=== PATIENT | male | born 1980 | race Hispanic/Latino ===

== ENCOUNTER 2017-09-02 19:38 | Inpatient (IN) | payer BC ==
[~2017-09-02] VITALS: Ht 175.3 cm; Wt 104.7 kg
[2017-09-02 20:04] LABS: APPEARANCE,URINE Clear (CLEAR); BILIRUBIN,URINE Negative (NEGATIVE); COLOR,URINE Dark Yellow (YELLOW); GLUCOSE, URINE (UA) Negative (NEGATIVE); KETONES,URINE 40 mg/dL (NEGATIVE); LEUKOCYTE ESTERASE ,URINE Negative (NEGATIVE); NITRATE,URINE Negative (NEGATIVE); OCCULT BLOOD,URINE Moderate (NEGATIVE); PH,URINE 5.5 (5.0-8.0); PROTEIN,URINE POS 2+ (NEGATIVE)
[2017-09-02 20:09] LABS: BASOPHILS % (AUTO) 1.8 % (0.0-5.0); EOSINOPHILS % (AUTO) 0.2 % (0.0-8.0); HEMATOCRIT 43.7 % (42-54); LYMPHOCYTES % (AUTO) 11.9 % (21.0-51.0); MEAN CORPUSCULAR HEMOGLOBIN 31.5 pg (27.0-33.0); MEAN CORPUSCULAR HGB CONC 34.6 g/dL (32.0-36.0); MEAN CORPUSCULAR VOLUME 90.9 fL (79-99); MONOCYTES % (AUTO) 7.6 % (3.0-13.0); NEUTROPHILS % (AUTO) 78.5 % (40.0-77.0); PLATELET COUNT (AUTO) 164 K/uL (130-400); RED BLOOD CELL COUNT(AUTO) 4.81 MIL/uL (4.50-6.20); RED CELL DISTRIBUTION WIDTH 12.8 % (11.0-15.5); WHITE BLOOD COUNT (AUTO) 10.6 K/uL (4.8-10.8)
[2017-09-02 20:20] LABS: BACTERIA,URINE Rare /HPF (None Seen); WBC,URINE 0-1 /HPF (0-1)
[2017-09-02 20:22] LABS: CARBON DIOXIDE 25 mmol/L (21-32); CHLORIDE 100 mmol/L (101-111); CREATININE 1.1 mg/dL (0.5-1.5); GLOMERULAR FILTR. RATE CALC 79 mL/min (>60); GLUCOSE,RANDOM 109 mg/dL (70-105); POTASSIUM 3.8 mmol/L (3.5-5.1); SODIUM SERUM 137 mmol/L (136-145); UREA NITROGEN, BLOOD 12 mg/dL (7-18)
[2017-09-02 20:23] LABS: INR 0.95 (0.85-1.15); PARTIAL THROMBOPLASTIN TIME 32.2 SEC (26.3-35.5)
[2017-09-02] MEDS ORDERED: IBUPROFEN 600 MG TABLET ONE (20:28)
[2017-09-02 20:37] LABS: ALANINE AMINOTRANSFERASE 67 U/L (12-78); ALBUMIN 3.2 g/dL (3.5-5.0); ASPARTATE AMINOTRANSFERASE 37 U/L (10-37); BILIRUBIN,TOTAL 0.8 mg/dL (0.2-1.0); CREATINE KINASE MB < 0.5 ng/mL (0.5-3.6); CREATINE KINASE, TOTAL 64 U/L (21-232); MYOGLOBIN 27 ng/mL (10-92); TOTAL PROTEIN, SERUM 7.6 g/dL (6.0-8.3); TROPONIN I < 0.04 ng/mL (0.00-0.06)
[2017-09-02] MEDS ORDERED: IOPAMIDOL-370 75 ML VIAL IV ONE (20:37)
[2017-09-02] MEDS ORDERED: ISOVUE-370 50ML VIAL IV ONE (21:07)
[2017-09-02] MEDS ORDERED: METRONIDAZOLE 500MG/100ML BAG 100 ML ONE (22:46)
[2017-09-02] MEDS ORDERED: LACTATED RINGERS 1000ML 1,000 ML IV ONE (23:06)
[2017-09-02] MEDS ORDERED: ONDANSETRON HCL 4 MG/2 ML VIAL IVP PRN (23:15)
[2017-09-02] MEDS ORDERED: CEFTAZIDIME PENTAHYDRATE 1 GM/VIAL ONE (23:25)
[2017-09-02] MEDS ORDERED: ONDANSETRON HCL 4 MG/2 ML VIAL ONE (23:40)
[2017-09-02] MEDS ORDERED: MEPERIDINE-PF 25 MG/ML SYG ONE (23:40)
[2017-09-03] MEDS ORDERED: CEFTAZIDIME 1GM+NS 50ML 50 ML IV SCH
[2017-09-03] MEDS: METRONIDAZOLE 500MG/100ML BAG 100 ML IVPB SCH ×4 (04:00→20:39)
[2017-09-03] MEDS ORDERED: METRONIDAZOLE 500MG/100ML BAG 100 ML ONE ×2 (07:03→13:30)
[2017-09-03] MEDS: LACTATED RINGERS 1000ML 1,000 ML IV SCH ×3 (07:15→20:39)
[2017-09-03] MEDS ORDERED: MEPERIDINE-PF 25 MG/ML SYG ONE ×3 (07:15→15:08)
[2017-09-03] MEDS ORDERED: ONDANSETRON HCL 4 MG/2 ML VIAL ONE (07:15)
[2017-09-03] MEDS: CEFTAZIDIME PENTAHYDRATE 1 GM/VIAL IVP SCH ×2 (14:00→22:31)
[2017-09-03 17:25] VITALS: BP 145/89
[2017-09-03] MEDS ORDERED: AMOX-429 PO (17:45)
[2017-09-03 19:54] VITALS: BP 146/99
[2017-09-03] MEDS ORDERED: MEPERIDINE HCL/PF 25 MG/0.5 ML AMPUL ONE (20:37)
[2017-09-03 23:42] VITALS: BP 129/77
[2017-09-04] MEDS: LACTATED RINGERS 1000ML 1,000 ML IV SCH ×4 (02:14→22:04)
[2017-09-04] MEDS: METRONIDAZOLE 500MG/100ML BAG 100 ML IVPB SCH ×4 (04:09→22:03)
[2017-09-04 05:07] VITALS: BP 121/81
[2017-09-04] MEDS: CEFTAZIDIME PENTAHYDRATE 1 GM/VIAL IVP SCH ×3 (06:39→22:04)
[2017-09-04 07:55] VITALS: BP 144/101
[2017-09-04 09:28] LABS: HEMATOCRIT 42.9 % (42-54); MEAN CORPUSCULAR HEMOGLOBIN 31.4 pg (27.0-33.0); MEAN CORPUSCULAR HGB CONC 34.6 g/dL (32.0-36.0); MEAN CORPUSCULAR VOLUME 90.9 fL (79-99); PLATELET COUNT (AUTO) 187 K/uL (130-400); RED BLOOD CELL COUNT(AUTO) 4.72 MIL/uL (4.50-6.20); RED CELL DISTRIBUTION WIDTH 12.8 % (11.0-15.5); WHITE BLOOD COUNT (AUTO) 6.1 K/uL (4.8-10.8)
[2017-09-04 09:39] LABS: POTASSIUM 4.2 mmol/L (3.5-5.1)
[2017-09-04] MEDS: MEPERIDINE-PF 25 MG/ML SYG IV PRN (09:44)
[2017-09-04 12:01] VITALS: BP 124/82
[2017-09-04 16:33] VITALS: BP 135/94
[2017-09-04 20:00] VITALS: BP 143/86
[2017-09-04] MEDS ORDERED: MEPERIDINE HCL/PF 25 MG/0.5 ML AMPUL ONE (22:02)
[2017-09-05] VITALS (7 sets, daily range): BP systolic 126–154; BP diastolic 74–95
[2017-09-05 05:06] LABS: MEAN CORPUSCULAR HEMOGLOBIN 31.3 pg (27.0-33.0); MEAN CORPUSCULAR VOLUME 89.3 fL (79-99); PLATELET COUNT (AUTO) 198 K/uL (130-400); RED BLOOD CELL COUNT(AUTO) 4.59 MIL/uL (4.50-6.20); RED CELL DISTRIBUTION WIDTH 12.3 % (11.0-15.5); WHITE BLOOD COUNT (AUTO) 5.3 K/uL (4.8-10.8)
[2017-09-05 05:11] LABS: POTASSIUM 3.7 mmol/L (3.5-5.1)
[2017-09-05] MEDS: METRONIDAZOLE 500MG/100ML BAG 100 ML IVPB SCH ×4 (05:11→21:45)
[2017-09-05] MEDS: CEFTAZIDIME PENTAHYDRATE 1 GM/VIAL IVP SCH ×3 (05:11→21:45)
[2017-09-05] MEDS: LACTATED RINGERS 1000ML 1,000 ML IV SCH ×3 (09:52→23:53)
[2017-09-05] MEDS ORDERED: LACTATED RINGERS 1000ML IV ONE (17:45)
[2017-09-05] MEDS: MEPERIDINE-PF 25 MG/ML SYG IV PRN (22:44)
[2017-09-06 04:10] VITALS: BP 158/84
[2017-09-06] MEDS: METRONIDAZOLE 500MG/100ML BAG 100 ML IVPB SCH ×4 (04:15→21:37)
[2017-09-06] MEDS: MEPERIDINE-PF 25 MG/ML SYG IV PRN (04:15)
[2017-09-06 04:56] LABS: HEMATOCRIT 42.4 % (42-54); MEAN CORPUSCULAR HEMOGLOBIN 31.2 pg (27.0-33.0); MEAN CORPUSCULAR HGB CONC 34.7 g/dL (32.0-36.0); NUCLEATED RED BLOOD CELLS 0.1 % (0.0-0.19); PLATELET COUNT (AUTO) 225 K/uL (130-400); RED BLOOD CELL COUNT(AUTO) 4.71 MIL/uL (4.50-6.20); RED CELL DISTRIBUTION WIDTH 12.5 % (11.0-15.5); WHITE BLOOD COUNT (AUTO) 4.8 K/uL (4.8-10.8)
[2017-09-06 05:07] LABS: POTASSIUM 3.9 mmol/L (3.5-5.1)
[2017-09-06] MEDS: CEFTAZIDIME PENTAHYDRATE 1 GM/VIAL IVP SCH ×3 (05:11→21:37)
[2017-09-06 07:00] VITALS: BP 146/85
[2017-09-06 11:57] VITALS: BP 143/91
[2017-09-06] MEDS: LACTATED RINGERS 1000ML 1,000 ML IV SCH (14:15)
[2017-09-06 16:00] VITALS: BP 135/83
[2017-09-06 19:36] VITALS: BP 145/80
[2017-09-06 23:25] VITALS: BP 128/73
[2017-09-07] MEDS: LACTATED RINGERS 1000ML 1,000 ML IV SCH (00:25)
[2017-09-07 04:47] VITALS: BP 123/74
[2017-09-07] MEDS: METRONIDAZOLE 500MG/100ML BAG 100 ML IVPB SCH (04:49)
[2017-09-07] MEDS: CEFTAZIDIME PENTAHYDRATE 1 GM/VIAL IVP SCH (05:51)
[2017-09-07 07:39] VITALS: BP 139/78
[2017-09-07 10:18] LABS: HEMATOCRIT 43.6 % (42-54); MEAN CORPUSCULAR HEMOGLOBIN 31.5 pg (27.0-33.0); MEAN CORPUSCULAR VOLUME 89.9 fL (79-99); PLATELET COUNT (AUTO) 243 K/uL (130-400); RED BLOOD CELL COUNT(AUTO) 4.85 MIL/uL (4.50-6.20); RED CELL DISTRIBUTION WIDTH 12.8 % (11.0-15.5); WHITE BLOOD COUNT (AUTO) 4.3 K/uL (4.8-10.8)
[2017-09-07 10:25] LABS: CREATININE 0.9 mg/dL (0.5-1.5); POTASSIUM 3.7 mmol/L (3.5-5.1)
[2017-09-07 11:16] VITALS: BP 149/89
== END 2017-09-07 12:10 | disposition home or self-care (01) | DRG 392 ==
LOC: EDH 19:38 → EDHIP 22:40 → 4BH 09-03 17:06
PROVIDERS: ADMIT Surgery; ATTEND Surgery
DX: K57.20 Diverticulitis of large intestine with perforation and abscess without bleeding (principal)
CPT/HCPCS: 36415; 71045; 74177; 80048; 80053; 81001; 82550; 82553; 83605; 83874; 84484; 85025; 85027; 85610; 85730; 87040; 87088; 93005; A4218; J0713; J2175; J2405; J3490; J7120; Q9967

== ENCOUNTER 2020-01-02 15:09 | Inpatient (IN) | payer BC ==
[~2020-01-02] VITALS: Ht 175.3 cm; Wt 103.5 kg
[~2020-01-02 15:09] MED LIST: AMOX-429 PO
[2020-01-02 15:27] LABS: BASOPHILS % (AUTO) 0.5 % (0.0-5.0); EOSINOPHILS % (AUTO) 1.4 % (0.0-8.0); HEMATOCRIT 46.7 % (42-54); LYMPHOCYTES % (AUTO) 38.3 % (21.0-51.0); MEAN CORPUSCULAR HEMOGLOBIN 30.4 pg (27.0-33.0); MEAN CORPUSCULAR HGB CONC 34.3 g/dL (32.0-36.0); MEAN CORPUSCULAR VOLUME 88.6 fL (79-99); MONOCYTES % (AUTO) 8.2 % (3.0-13.0); NEUTROPHILS % (AUTO) 51.3 % (40.0-77.0); PLATELET COUNT (AUTO) 176 K/uL (130-400); RED BLOOD CELL COUNT(AUTO) 5.27 MIL/uL (4.50-6.20); RED CELL DISTRIBUTION WIDTH 12.1 % (11.0-15.5); WHITE BLOOD COUNT (AUTO) 6.6 K/uL (4.8-10.8)
[2020-01-02 15:39] LABS: INR 0.91 (0.85-1.15); PARTIAL THROMBOPLASTIN TIME 24.9 SEC (26.3-35.5); PROTHROMBIN TIME 9.9 SEC (9.6-11.6)
[2020-01-02 17:11] LABS: BILIRUBIN,TOTAL 0.3 mg/dL (0.2-1.0); CREATININE 1.4 mg/dL (0.5-1.5); POTASSIUM 3.5 mmol/L (3.5-5.1); TOTAL PROTEIN, SERUM 7.2 g/dL (6.0-8.3)
[2020-01-02] MEDS ORDERED: ACETAMINOPHEN 325 MG TAB ONE (17:20)
[2020-01-02] MEDS ORDERED: ONDANSETRON HCL 4 MG/2 ML VIAL ONE (17:26)
[2020-01-02] MEDS: SODIUM CHLORIDE 0.9% 1000ML 1,000 ML IV SCH (17:57)
[2020-01-02] MEDS ORDERED: HYDRALAZINE HCL 20 MG/ML VIAL IV PRN (18:00)
[2020-01-02] MEDS ORDERED: ACETAMINOPHEN 325 MG TAB PO PRN ×2 (18:00)
[2020-01-02 18:46] LABS: APPEARANCE,URINE Clear (CLEAR); BILIRUBIN,URINE Negative (NEGATIVE); COLOR,URINE Yellow (YELLOW); GLUCOSE, URINE (UA) Negative (NEGATIVE); KETONES,URINE Negative (NEGATIVE); LEUKOCYTE ESTERASE ,URINE Negative (NEGATIVE); NITRATE,URINE Negative (NEGATIVE); OCCULT BLOOD,URINE Negative (NEGATIVE); PROTEIN,URINE Negative (NEGATIVE)
[2020-01-02 18:55] LABS: AMPHET/METH SCREEN,URINE NEGATIVE (NEGATIVE); BARBITURATE SCREEN, URINE NEGATIVE (NEGATIVE); BENZODIAZEPINES SCREEN,URINE NEGATIVE (NEGATIVE); CANNABINOID SCREEN,URINE NEGATIVE (NEGATIVE); COCAINE SCREEN,URINE NEGATIVE (NEGATIVE); OPIATE SCREEN,URINE NEGATIVE (NEGATIVE); PHENCYCLIDINE SCREEN,URINE NEGATIVE (NEGATIVE)
[2020-01-02] MEDS: LEVETIRACETAM 500 MG TABLET PO SCH (21:00)
[2020-01-02] MEDS: FAMOTIDINE/PF 20 MG/2 ML VIAL IV SCH (21:00)
[2020-01-02] MEDS ORDERED: FAMOTIDINE 20MG TAB 20 MG TAB ONE (21:04)
[2020-01-02] MEDS ORDERED: LEVETIRACETAM 500 MG TABLET PO ONE (21:05)
[2020-01-02 21:25] VITALS: BP 139/92
[2020-01-02 22:10] LABS: BASOPHILS % (AUTO) 0.3 % (0.0-5.0); EOSINOPHILS % (AUTO) 1.2 % (0.0-8.0); HEMATOCRIT 44.2 % (42-54); MEAN CORPUSCULAR HEMOGLOBIN 30.2 pg (27.0-33.0); MEAN CORPUSCULAR HGB CONC 33.9 g/dL (32.0-36.0); MEAN CORPUSCULAR VOLUME 88.9 fL (79-99); MONOCYTES % (AUTO) 6.5 % (3.0-13.0); NEUTROPHILS % (AUTO) 49.7 % (40.0-77.0); PLATELET COUNT (AUTO) 181 K/uL (130-400); RED BLOOD CELL COUNT(AUTO) 4.97 MIL/uL (4.50-6.20); RED CELL DISTRIBUTION WIDTH 12.3 % (11.0-15.5)
[2020-01-02 22:27] LABS: ALBUMIN 3.6 g/dL (3.5-5.0); BILIRUBIN,TOTAL 0.4 mg/dL (0.2-1.0); CREATININE 1.2 mg/dL (0.5-1.5); POTASSIUM 3.6 mmol/L (3.5-5.1); TOTAL PROTEIN, SERUM 6.8 g/dL (6.0-8.3)
[2020-01-03 00:24] VITALS: BP 129/85
[2020-01-03 04:24] VITALS: BP 98/60
[2020-01-03] MEDS: SODIUM CHLORIDE 0.9% 1000ML 1,000 ML IV SCH ×2 (05:37→14:00)
[2020-01-03 08:23] VITALS: BP 132/88
[2020-01-03] MEDS: FAMOTIDINE/PF 20 MG/2 ML VIAL IV SCH (08:32)
[2020-01-03] MEDS: LEVETIRACETAM 500 MG TABLET PO SCH (08:32)
--- NOTE | 2020-01-03 10:17 | NUR ---
DC PLAN VISITED WITH PATIENT. PATIENT LIVES WITH SPOUSE. INDEPENDENT ABLE TO PERFORM ADL'S. PATIENT HAS NO SERVICES OR DME'S. FEELS SAFE TO RETURN HOME. Addendum: 01/03/20 at 1018 by SHELLY PALMER RN CM Amended: Links added.
[2020-01-03] MEDS ORDERED: GADODIAMIDE 10 MMOL/20 ML VIAL IV ONE (11:01)
[2020-01-03 11:51] VITALS: BP 129/87
[2020-01-03] MEDS ORDERED: LEVE-43 PO (15:19)
== END 2020-01-03 17:45 | disposition home or self-care (01) | DRG 101 ==
LOC: EDH 15:09 → EDHIP 17:57 → 3DH 21:35
PROVIDERS: ADMIT Internal Medicine; ATTEND Internal Medicine
DX: R56.9 Unspecified convulsions (principal); N17.9 Acute kidney failure, unspecified; G93.81 Temporal sclerosis; F17.210 Nicotine dependence, cigarettes, uncomplicated; N28.9 Disorder of kidney and ureter, unspecified; Z83.3 Family history of diabetes mellitus; Z82.49 Family history of ischemic heart disease and other diseases of the circulatory system
CPT/HCPCS: 36415; 70450; 70544; 70547; 70551; 70553; 71045; 80053; 80305; 81003; 82948; 85025; 85610; 85730; 93005; 99291; A9579; G0378; J2405; J3490; J7030

== ENCOUNTER 2020-03-31 13:24 | Emergency (ER) | payer BC ==
[~2020-03-31 13:24] MED LIST changes: -AMOX-429 PO; +LEVE-43 PO
[2020-03-31 13:47] LABS: BASOPHILS % (AUTO) 0.3 % (0.0-5.0); EOSINOPHILS % (AUTO) 0.6 % (0.0-8.0); HEMATOCRIT 48.5 % (42-54); LYMPHOCYTES % (AUTO) 25.5 % (21.0-51.0); MEAN CORPUSCULAR HEMOGLOBIN 30.5 pg (27.0-33.0); MEAN CORPUSCULAR HGB CONC 34.8 g/dL (32.0-36.0); MEAN CORPUSCULAR VOLUME 87.4 fL (79-99); MONOCYTES % (AUTO) 6.7 % (3.0-13.0); NEUTROPHILS % (AUTO) 66.6 % (40.0-77.0); PLATELET COUNT (AUTO) 159 K/uL (130-400); RED BLOOD CELL COUNT(AUTO) 5.55 MIL/uL (4.50-6.20); RED CELL DISTRIBUTION WIDTH 12.2 % (11.0-15.5); WHITE BLOOD COUNT (AUTO) 6.5 K/uL (4.8-10.8)
[2020-03-31 14:00] LABS: CREATININE 1.7 mg/dL (0.5-1.5); POTASSIUM 3.6 mmol/L (3.5-5.1)
[2020-03-31 14:04] LABS: ALBUMIN 4.1 g/dL (3.5-5.0); BILIRUBIN,TOTAL 0.4 mg/dL (0.2-1.0); TOTAL PROTEIN, SERUM 7.6 g/dL (6.0-8.3)
[2020-03-31] MEDS ORDERED: METOCLOPRAMIDE 10 MG/2 ML VIAL ONE (14:04)
[2020-03-31] MEDS ORDERED: DiphenhydrAMINE HCL 50 MG/ML VIAL ONE (14:05)
[2020-03-31] MEDS ORDERED: SODIUM CHLORIDE 0.9% 1000ML 1,000 ML IV ONE (14:05)
[2020-03-31] MEDS ORDERED: LEVETIRACETAM 500 MG/5 ML SD VIAL IV ONE (14:05)
[2020-03-31 14:06] LABS: INR 0.91 (0.85-1.15); PARTIAL THROMBOPLASTIN TIME 22.4 SEC (26.3-35.5); PROTHROMBIN TIME 9.9 SEC (9.6-11.6)
[2020-03-31] MEDS ORDERED: SODIUM CHLORIDE 0.9% 100 ML IV ONE (14:06)
[2020-03-31] MEDS ORDERED: IOHEXOL 350 MG/ML 100ML INFUS..BTL IV ONE (14:18)
[2020-03-31 14:24] LABS: APPEARANCE,URINE Clear (CLEAR); BILIRUBIN,URINE Negative (NEGATIVE); COLOR,URINE Yellow (YELLOW); GLUCOSE, URINE (UA) Negative (NEGATIVE); KETONES,URINE Negative (NEGATIVE); LEUKOCYTE ESTERASE ,URINE Negative (NEGATIVE); NITRATE,URINE Negative (NEGATIVE); OCCULT BLOOD,URINE Negative (NEGATIVE); PH,URINE 5.5 (5.0-8.0); PROTEIN,URINE POS 1+ mg/dL (NEGATIVE); UROBILINOGEN,URINE 0.2 mg/dL (0.2-1.0)
[2020-03-31 14:30] LABS: BACTERIA,URINE Rare /HPF (None Seen); MUCUS,URINE Rare LPF (None Seen); RBC,URINE 0-1 /HPF (0-1); SQUAMOUS EPITHELIAL CELL,UR Rare /HPF (0-2); WBC,URINE 0-1 /HPF (0-1)
[2020-03-31 14:33] LABS: AMPHET/METH SCREEN,URINE NEGATIVE (NEGATIVE); BARBITURATE SCREEN, URINE NEGATIVE (NEGATIVE); BENZODIAZEPINES SCREEN,URINE NEGATIVE (NEGATIVE); CANNABINOID SCREEN,URINE NEGATIVE (NEGATIVE); COCAINE SCREEN,URINE NEGATIVE (NEGATIVE); OPIATE SCREEN,URINE NEGATIVE (NEGATIVE); PHENCYCLIDINE SCREEN,URINE NEGATIVE (NEGATIVE)
[2020-03-31] MEDS ORDERED: ACETAMINOPHEN EXTRA STRENGTH 500 MG TABLET ONE (15:35)
== END 2020-03-31 16:19 | disposition home or self-care (01) ==
LOC: EDH 13:24
DX: G40.89 Other seizures (principal); N28.9 Disorder of kidney and ureter, unspecified; R03.0 Elevated blood-pressure reading, without diagnosis of hypertension; Z72.0 Tobacco use
CPT/HCPCS: 36415; 70450; 71045; 80053; 80177; 80305; 81001; 82550; 82948; 83721; 84484; 85025; 85610; 85730; 93005; 96365; 96366; 96375; 99291; J1200; J1953; J2765; J7030; Q9967

== ENCOUNTER 2021-02-03 18:08 | Emergency (ER) | payer BC ==
[~2021-02-03] VITALS: Ht 177.8 cm; Wt 99.8 kg
[2021-02-03 18:15] VITALS: BP 145/95
[2021-02-03 18:51] LABS: BASOPHILS % (AUTO) 0.3 % (0.0-5.0); EOSINOPHILS % (AUTO) 0.4 % (0.0-8.0); HEMATOCRIT 43.3 % (42-54); LYMPHOCYTES % (AUTO) 22.1 % (21.0-51.0); MEAN CORPUSCULAR HEMOGLOBIN 30.4 pg (27.0-33.0); MEAN CORPUSCULAR HGB CONC 34.4 g/dL (32.0-36.0); MEAN CORPUSCULAR VOLUME 88.4 fL (79-99); MONOCYTES % (AUTO) 6.8 % (3.0-13.0); NEUTROPHILS % (AUTO) 70.1 % (40.0-77.0); PLATELET COUNT (AUTO) 176 K/uL (130-400); WHITE BLOOD COUNT (AUTO) 7.5 K/uL (4.8-10.8)
[2021-02-03] MEDS ORDERED: 0.9%NACL 100ML 100 ML ONE (18:55)
[2021-02-03] MEDS ORDERED: LEVETIRACETAM 500 MG/5 ML SD VIAL IV ONE (18:55)
[2021-02-03] MEDS: LEVETIRACETAM 500 MG in 0.9%NACL 100ML 100 ML IV SCH ×2 (19:00→19:08)
[2021-02-03 19:20] LABS: CREATININE 1.1 mg/dL (0.5-1.5); POTASSIUM 3.6 mmol/L (3.5-5.1)
[2021-02-03 19:25] LABS: ALBUMIN 3.8 g/dL (3.5-5.0); BILIRUBIN,TOTAL 0.5 mg/dL (0.2-1.0); TOTAL PROTEIN, SERUM 7.1 g/dL (6.0-8.3)
[2021-02-03] MEDS ORDERED: ACETAMINOPHEN 500 MG TABLET PO ONE (20:00)
[2021-02-03] MEDS ORDERED: ACETAMINOPHEN 500 MG TABLET ONE (20:15)
[2021-02-03 20:24] VITALS: BP 138/90
== END 2021-02-03 21:18 | disposition home or self-care (01) ==
LOC: EDH 18:08
DX: G40.909 Epilepsy, unspecified, not intractable, without status epilepticus (principal); Z79.899 Other long term (current) drug therapy
CPT/HCPCS: 36415; 70450; 80053; 85025; 96365; 99284; J1953 ×2